=== PATIENT | male | born 1955 | race Caucasian/White ===

== ENCOUNTER 2022-04-12 07:46 | Day surgery (SDC) | payer BC ==
[~2022-04-12] VITALS: Ht 172.7 cm; Wt 85.0 kg
[~2022-04-12 07:46] MED LIST: LORA10ER PO; PRAV20; PRAV20 PO
--- NOTE | 2022-04-12 08:57 | NUR ---
04/12/22 0857 Pratibha Garcia HISTORY, CHART, MEDICATIONS AND ALLERGIES REVIEWED BEFORE START OF PROCEDURE. PATIENT CONFIRMS NPO STATUS AND AGREES WITH SCHEDULED PROCEDURE. 3-LEAD EKG REVIEWED WITH PHYSICIAN PRIOR TO START OF PROCEDURE. MONITOR INTACT WITH CONTINUOUS PULSE OXIMETRY,CAPNOGRAPHY, 3-LEAD EKG, INTERMITTENT BP. SUPPLEMENTAL O2 TO BE TITRATED THROUGHOUT PROCEDURE TO MAINTAIN O2 SATURATION ABOVE 90%. PATIENT DETERMINED TO BE ASA APPROPRIATE FOR PROPOFOL SEDATION PRIOR TO START OF PROCEDURE BY DR. CALLOWAY
--- NOTE | 2022-04-12 09:36 | NUR ---
Discharge instructions reviewed with patient. Patient verbalizes understanding. Copy given to patient to take home.
--- NOTE | 2022-04-12 09:42 | NUR ---
Discharged via wheelchair to private car for ride home.
== END 2022-04-12 09:43 | disposition home or self-care (01) ==
LOC: ORSCMMR 07:46 → ORD 09:00 → ORSCMMR 09:43 → ORD 04-18 08:00
PROVIDERS: Internal Medicine Gastroenterology
PROC: 0DJD8ZZ Inspection of Lower Intestinal Tract, Via Natural or Artificial Opening Endoscopic (ICD-10-PCS; principal; 2022-04-12 09:00)
DX: Z12.11 Encounter for screening for malignant neoplasm of colon (principal); Z86.010 Personal history of colon polyps; E78.00 Pure hypercholesterolemia, unspecified; Z79.899 Other long term (current) drug therapy
CPT/HCPCS: J2250; J2704; J7120

== ENCOUNTER 2022-12-11 06:38 | Inpatient (IN) | payer BC ==
[2022-12-11] VITALS (33 sets, daily range): BP systolic 115–162; BP diastolic 50–90
[~2022-12-11] VITALS: Ht 175.3 cm; Wt 84.4 kg
[2022-12-11 07:10] LABS: BASOPHILS ABSOLUTE AUTO 0.07 K/mm3 (0.00-0.23); BASOPHILS PERCENT AUTO 1 % (0-2); EOSINOPHILS ABSOLUTE AUTO 0.34 K/mm3 (0.00-0.68); EOSINOPHILS PERCENT AUTO 5 % (0-6); Hematocrit 42.7 % (37.0-53.0); Hemoglobin 14.5 g/dL (13.5-17.5); IMMATURE GRAN ABSOLUTE AUTO 0.01 K/mm3 (0.00-0.10); IMMATURE GRAN PERCENT AUTO 0 % (0-1); LYMPHOCYTES ABSOLUTE AUTO 1.66 K/mm3 (0.84-5.20); LYMPHOCYTES PERCENT AUTO 22 % (21-46); MONOCYTES ABSOLUTE AUTO 0.81 K/mm3 (0.16-1.47); MONOCYTES PERCENT AUTO 11 % (4-13); Mean Corpuscular HGB 31.1 pg (26.0-34.0); Mean Corpuscular Volume 92 fL (80-100); Mean Platelet Volume 10.6 fL (9.1-12.4); NEUTROPHILS ABSOLUTE AUTO 4.53 K/mm3 (1.96-9.15); NEUTROPHILS PERCENT AUTO 61 % (41-73); Platelet Count 286 K/mm3 (150-400); RDW Coefficient Variation 12.3 % (11.7-14.2); RDW Standard Deviation 41.2 fL (35.1-46.3); Red Blood Cell Count 4.66 M/mm3 (4.30-5.90); White Blood Cell Count 7.42 K/mm3 (4.00-11.30)
[2022-12-11 07:39] LABS: Alanine Aminotransfer (ALT/SGP 35 U/L (12-78); Albumin, Blood 4.2 g/dL (3.4-5.0); Albumin/Globulin Ratio 1.3 (0.8-1.8); Alk Phos 138 U/L (50-136); Anion Gap 5 mmol/L (6-16); Aspartate Aminotrans (AST/SGOT 28 U/L (12-37); Bilirubin, Total 0.6 mg/dL (0.1-1.0); Blood Urea Nitrogen 18 mg/dL (8-24); Bun/Creatinine Ratio 19.1 (12.0-20.0); CO2, Blood 26 mmol/L (21-32); Calcium, Blood 9.4 mg/dL (8.5-10.1); Chloride, Blood 107 mmol/L (98-108); Cholesterol 283 mg/dL (50-200); Creatinine, Blood 0.94 mg/dL (0.60-1.20); Globulin, Blood 3.2 g/dL (2.2-4.0); Glomerular Filtration Rate 89 (60-); Glucose, Blood 123 mg/dL (70-99); HDL Cholesterol 57 mg/dL (>39); LDL/HDL RATIO 3.6; Low Density Lipoprotein Chol 203 mg/dL (0-110); Potassium, Blood 3.9 mmol/L (3.5-5.5); Sodium, Blood 138 mmol/L (136-145); Total Protein, Blood 7.4 g/dL (6.4-8.2); Triglycerides 115 mg/dL (30-160); Very Low Density Lipoprot Chol 23 mg/dL (6-32)
--- NOTE | 2022-12-11 08:30 | NUR ---
CARE ASSUMPTION PT ARRIVED TO ICU 15 FROM THE POWER MACHINE OPERATOR. PT IS ALERT AND ORIENTED TALKING W STAFF APPROPRIATELY. PT REPORTING 1-2 OUT OF 10 CHEST PRESSURE WHICH IS UNCHANGED SINCE RECIEVING HIS STENT IN THE POWER MACHINE OPERATOR. MONITOR SHOWING SB 50'S W REPROFUSION BEATS WHICH THE PT REPORTS FEELING THOUGH HIS HEART IS SKIPPING A BEAT. BP WNL AND STABLE. SPO2 >94% ON RM AIR. TR BAND ON R RADIAL SITE W 11ML INFLATED IN IT. WILL BEGING DEFLATING TR BAND AT 1004 IT WAS INFLATED AT 0804. PT'S SPOUSE AT [facility].
--- NOTE | 2022-12-11 08:50 | NUR ---
CARDIOLOGY UPDATE: Dr Garcia updated on pt status. Notified of reperfusion beats and bradycardia. He states this is to be expected. Asprin therapy clarified and orders obtained for IV benadryl and epi in case of allergic reaction.
--- NOTE | 2022-12-11 08:54 | NUR ---
PROVIDER UPDATE: Dr Corbett called and notified of pt's arrival and plan to initiate aspirin therapy.
--- NOTE | 2022-12-11 10:56 | NUR ---
UPDATE PT HALF WAY THROUGH ASPIRIN DESENSITIZATION PROCESS. PT HAVING SLIOGHT FLUSHED APPEARANCE IN FACE BUT DENIES ANY SYMPTOMS AT THIS TIME. CLOTH SHRINKING MACHINE OPERATOR NOTIFIED.
--- NOTE | 2022-12-11 11:41 | NUR ---
UPDATE PROVIDER CONTACTED ABOUT ELEVATED TROPONINS. PROVIDER DOES NOT WANT TO CONTINUE TO TREND THE TROPONINS FURTHER.
--- NOTE | 2022-12-11 13:11 | NUR ---
UPDATE PT REPORTING SEVERE SINUS CONGESTION WHICH IS WHAT HE STATES HAPPENED WHERN HE HAD A REACTION TO NSAIDS IN THE PAST. PROVIDER NOTIFIED AND DR. MONTENEGRO TO CALL BACK W ORDERS.
--- NOTE | 2022-12-11 18:35 | NUR ---
DAY SHIFT SUMMARY PT HAS REMAINED ALERT AND ORIENTED THIS SHIFT. ON ARRIVAL THE PT HAD A LOT OF REPROFUSION BEATS WHICH HE SAID HE COULD FEEL BUT AFTER THE FIRST HOUR IN THE UNIT HE ONLY HAD THE OCCASIONAL PVC. PT'S MONITOR SHOWED SB 50'S ON ARRIVAL BUT HE HAS BEEN SR 60'S FOR MOST OF THE SHIFT. PT'S BP WNL AND STABLE. PT AFEBRILE. SPO2 >94% ON RM AIR. PT HAD ASPIRIN DESENSITIZATION DONE THIS SHIFT WHERE HE REPORTED SEVERE CONGESTION IN HIS SINUSES AFTER RECIEVING THE ASPIRIN. PT RECIEVED BENADRYL WELL FLONASE AND AFRIN WHICH RELIEVED HIS SYMPTOMS. PT RECIEVED PROPHYLACTIC BENADRYL THIS AFTERNOON PRIOR TO RECIEVING HIS 1800 DOSE OF ASPIRIN. PT HAS REPORTED 1 OUT OF 10 CHEST PRESSURE THIS SHIFT WHICH IS NOT CHANGED SINCE ARRIVAL TO THE UNIT. PT TOLERATING PO INTAKE WELL THIS SHIFT AND IS VOID W/O DIFFICULTY. PT'S SPOUSE AT BEDSIDE ALL SHIFT AND IS ASSITING W THE PT'S NEEDS. WILL REPORT TO ONCOMING RN.
--- NOTE | 2022-12-11 20:45 | NUR ---
PATIENT RESTING IN BED WITH AT BEDSIDE. VERBALIZED MID CHEST PRESSURE/PAIN 1-2/10 ABLE TO POSITION SELF IN BED WITHOUT DIFFICULTY. RIGHT WRIST ACCESS SITE WITH DRESSING CD&I NO SWELLING OR BLEEDING SEEN. MONITOR SHOWING SINUS WITH RATE 60'S
--- NOTE | 2022-12-11 22:17 | NUR ---
DOCTOR JEOVANNY GIVEN UPDATE. CHANGED TO PCU STATUS, CONTINUE TO MONITOR FOR REACTION TO ASPIRIN
[2022-12-12 04:05] VITALS: BP 115/66
[2022-12-12 04:36] LABS: BASOPHILS ABSOLUTE AUTO 0.09 K/mm3 (0.00-0.23); BASOPHILS PERCENT AUTO 1 % (0-2); EOSINOPHILS ABSOLUTE AUTO 0.33 K/mm3 (0.00-0.68); EOSINOPHILS PERCENT AUTO 3 % (0-6); Hematocrit 40.6 % (37.0-53.0); Hemoglobin 13.9 g/dL (13.5-17.5); IMMATURE GRAN ABSOLUTE AUTO 0.06 K/mm3 (0.00-0.10); IMMATURE GRAN PERCENT AUTO 1 % (0-1); LYMPHOCYTES ABSOLUTE AUTO 1.61 K/mm3 (0.84-5.20); LYMPHOCYTES PERCENT AUTO 13 % (21-46); MONOCYTES ABSOLUTE AUTO 1.26 K/mm3 (0.16-1.47); MONOCYTES PERCENT AUTO 10 % (4-13); Mean Corpuscular HGB Conc 34.2 g/dL (31.5-36.5); Mean Corpuscular Volume 90 fL (80-100); Mean Platelet Volume 10.7 fL (9.1-12.4); NEUTROPHILS ABSOLUTE AUTO 9.52 K/mm3 (1.96-9.15); NEUTROPHILS PERCENT AUTO 74 % (41-73); Platelet Count 241 K/mm3 (150-400); RDW Coefficient Variation 12.4 % (11.7-14.2); RDW Standard Deviation 40.7 fL (35.1-46.3); Red Blood Cell Count 4.49 M/mm3 (4.30-5.90); White Blood Cell Count 12.87 K/mm3 (4.00-11.30)
[2022-12-12 04:49] LABS: Bun/Creatinine Ratio 16.5 (12.0-20.0); Calcium, Blood 8.6 mg/dL (8.5-10.1); Creatinine, Blood 0.91 mg/dL (0.60-1.20); Potassium, Blood 4.1 mmol/L (3.5-5.5)
--- NOTE | 2022-12-12 06:53 | NUR ---
NOC SHIFT SUMMARY ASSUMED CARE OF PT UPON TRANSFER FROM ICU TO PCU 05. PT ORIENTED X4, SR/SB ON TELEMETRY. R RADIAL SITE CDI, ARMBOARD IN PLACE. EDUCATED ON PRECAUTIONS OF ANGIO SITE AND S/S TO REPORT. SPOUSE AND PATIENT VERBALIZE UNDERSTANDING. NO CP OVERNIGHT, ON RA. NO EVENTS ON TELEMETRY. PLAN FOR POSSIBLE D/C TODAY
[2022-12-12 07:46] VITALS: BP 132/78
[2022-12-12] MEDS ORDERED: ATOR80 PO (10:08)
[2022-12-12] MEDS ORDERED: ASPI81CH PO (10:08)
[2022-12-12] MEDS ORDERED: BENADRYL25 MG PO (10:09)
[2022-12-12] MEDS ORDERED: Flonase 0.05% N16 GM (10:11)
[2022-12-12] MEDS ORDERED: EPIPEN0.3 MG/0.3 IM (10:11)
[2022-12-12] MEDS ORDERED: TICA90TA PO (10:11)
[2022-12-12] MEDS ORDERED: METO25ER PO (10:12)
== END 2022-12-12 11:30 | disposition home or self-care (01) | DRG 247 ==
LOC: ER 06:38 → ICUE 07:08 → PCU 22:53
PROVIDERS: Emergency Medicine; Internal Medicine; ADMIT Internal Medicine Cardiovascular Disease
PROC: 027034Z Dilation of Coronary Artery, One Artery with Drug-eluting Intraluminal Device, Percutaneous Approach (ICD-10-PCS; principal; 2022-12-11)
PROC: B2111ZZ Fluoroscopy of Multiple Coronary Arteries using Low Osmolar Contrast (ICD-10-PCS; 2022-12-11)
PROC: 4A023N7 Measurement of Cardiac Sampling and Pressure, Left Heart, Percutaneous Approach (ICD-10-PCS; 2022-12-11)
DX: I21.19 ST elevation (STEMI) myocardial infarction involving other coronary artery of inferior wall (principal); I10 Essential (primary) hypertension; E78.5 Hyperlipidemia, unspecified; I25.10 Atherosclerotic heart disease of native coronary artery without angina pectoris; K63.5 Polyp of colon; Z88.8 Allergy status to other drugs, medicaments and biological substances; Z79.899 Other long term (current) drug therapy
CPT/HCPCS: 36415; 71045; 76937; 80048; 80053; 80061; 83735; 84484; 85025; 85347; 86850; 86900; 86901; 93005; 93010; 93454; 96374; 99152; 99153; 99291-25; A9270; C1725; C1769; C1874; C1887; C1894; C8929; C9606; J1200; J1644; J2250; J3010; J7030; J7040; J7050; Q9957; Q9967